=== PATIENT | male | born 1935 | race Caucasian/White ===

== ENCOUNTER 2020-08-20 10:45 | Inpatient (IN) | payer OTHER ==
[2020-08-20] MEDS ORDERED: SODIUM CHLORIDE 0.9% 1000ML 1,000 ML IVS ONE ×3 (10:54→14:22)
--- NOTE | 2020-08-20 11:12 | ED.PDOC ---
History of Present Illness - General Chief Complaint: General Stated Complaint: hypotension Time Seen by Provider: 08/20/20 10:53 Source: patient, RN notes reviewed, Vital Signs reviewed, EMS notes reviewed, [facility] records Exam Limitations: other - dementia - History of Present Illness Initial Comments: Patient is an 85-year-old [facility] resident with history of dementia and multiple chronic medical problems who presents to ED for generalized weakness and low blood pressure. Per EMS, patient had routine labs performed at the [facility] yesterday that showed an elevated potassium. He was given diuretics yesterday and since that time has had 6 or more loose, watery stools. This morning he had generalized weakness and a low blood pressure at the [facility] and EMS was called to transport to ED for evaluation. Upon EMS arrival, his systolic blood pressure was 105 and remained stable in route. Patient denies any pain and he does not remember having diarrhea. He is a poor historian, but denies any concerns at this time. Per [place] sherrie that called ED, pt family in discussions to place him on Hospice. Allergies/Adverse Reactions: Allergies NO KNOWN ALLERGY Allergy (Verified 08/20/20 11:05) Review of Systems - Review of Systems Review of Systems: 08/20/20 11:12 ROS limited due to pt poor hisorian, dementia. He denies any pain and concerns. Family Medical History - Family History Mother Family History: Unknown Physical Exam - Physical Exam General Appearance: Alert, Comfortable, No apparent distress Neck: non-tender, full range of motion, supple Respiratory: chest non-tender, lungs clear, normal breath sounds, no respiratory distress, no accessory muscle use Cardiovascular/Chest: regular rate, rhythm, no edema, no murmur Gastrointestinal/Abdominal: non tender, soft, other - ND, NTTP in all quadrants Back Exam: no CVA tenderness Extremity: normal range of motion, non-tender Neurologic: alert, normal mood/affect Skin Exam: normal color, warm/dry Progress - Progress Progress: 08/20/20 11:14 DDX: hyperkalemia, dehydration, sepsis, coitis, KIYA EKG- rate 70, wide QRS, RBBB, nonspecific T wave abnormality, no peaked T waves. 08/20/20 11:29 Patient presents from [facility] with elevated potassium and diarrhea after getting laxatives yesterday. His potassium today is 6.7 on initial labs. Does not have any cold EKGs or lab results in electronic health record. It is unknown if he has chronic kidney disease. His creatinine is 3.3 today. He appears dehydrated. Will treat with 500 cc of normal saline, insulin and glucose, sodium bicarb, and calcium and monitor in the ED. EKG shows no peaked T waves. He does have wide QRS and right bundle branch block. 08/20/20 14:04 I discussed pt by jabari with his POA, son in law Artemio Bales, . Pt was admitted to [facility] for leg infection 1 month ago and treat with antibiotics for 1 week. Since discharge, he has been at [facility]. Pt is full code. 08/20/20 14:13 Pt also has right great toe that is necrotic appearing with black discoloration. Dry. There is erythema to the midfoot region. Will get xray to al for osteo 08/20/20 15:13 Patient is an 85-year-old male with past medical history of diabetes, peripheral vascular disease and congestive heart failure. He was admitted to [facility] approximately 1 month ago for a foot infection and treated with IV antibiotics and has been at [facility] for the past 3 weeks. He was sent to ED for hypotension and elevated. His white blood cell count was 10,000 and lactic acid was 2.9. Creatinine was 3.3 we have no old records to show his baseline. Initial potassium was 6.7 and he was treated with hyperkalemia cocktail and potassium recheck was 5.5. Chest x-ray shows a left sided pneumonia. He has a necrotic right great toe with surrounding erythema, left foot x-ray shows no sign of osteomyelitis at this time. I have started cefepime and vancomycin and will plan to admit for sepsis due to pneumonia and right foot cellulitis. I have updated patient son in law by phone on results and plan of care. States his physicians have recommended amputation of right great toe due to frequent infections. 08/20/20 16:11 D/W Melony Falcon hospitalist. Will admit - Results/Orders Results/Orders: Acute abominal series EXAM: Abdomen Series INDICATION: 85 years Male, abd pain, diarrhea COMPARISON: None available FINDINGS: Acute abdominal series was performed on 3 images. Mildly prominent heart size. Sternotomy wires and surgical clips are noted. Atherosclerotic calcification at the aortic bulb. Diffuse interstitial infiltrates and patchy and confluent left mid and lower lung zone alveolar infiltrates. No sizable pleural effusion. No pneumothorax. Nonobstructive bowel gas pattern. Air is scattered throughout nondilated loops of small bowel and colon no abnormal air-fluid levels are identified. Surgical clips noted in the left upper quadrant. Diffusely hazy and distended appearance of the abdomen raises the question of possible ascites. No evidence for pneumoperitoneum. Severe degenerative changes in the spine. Degenerative changes in the hips. Vascular calcifications. IMPRESSION: 1. Patchy and confluent infiltrates in the left mid and lower lung zone, compatible with pneumonia. 2. No convincing evidence for mechanical bowel obstruction. 3. Diffusely hazy and distended appearance of the abdomen raises question of possible ascites. Foot xray EXAM DESCRIPTION: Foot,Right 3 Views CLINICAL HISTORY: great toe infection C OMPARISON: None. FINDINGS: 3 views of the right foot show diffuse osteopenia the osseous structures without acute fracture, focal bone destruction, or joint dislocation. Hammertoe deformity of the second through fifth digits is seen. Mild soft tissue irregularity around the distal aspect of the great toe without definite periosteal reaction or bone destructive changes. Severe vascular calcifications are identified. IMPRESSION: Soft tissue abnormality involving the distal aspect of the great toe is seen without radiographic evidence of fracture or bone destructive changes. COVID SWAB POSITIVE Laboratory Results - last 24 hr 08/20/20 08/20/20 08/20/20 10:48 10:48 14:07 WBC 13.1 H RBC 3.52 L Hgb 10.2 L Hct 31.0 L MCV 88.0 MCH 29.0 MCHC 32.9 L RDW 17.0 H Plt Count 568 H MPV 7.4 Absolute Neuts (auto) 11.70 H Absolute Lymphs (auto) 0.70 L Absolute Monos (auto) 0.40 Absolute Eos (auto) 0.10 Absolute Basos (auto) 0.10 Neutrophils % 89.7 H Lymphocytes % 5.6 L Monocytes % 2.8 Eosinophils % 1.1 Basophils % 0.8 Sodium 134 L 135 Potassium 6.7 H* 5.5 H Chloride 101 103 Carbon Dioxide 20 L 20 L Anion Gap 19.7 H 17.5 BUN 83 H 78 H Creatinine 3.30 H 3.22 H BUN/Creatinine Ratio 25.2 H 24.2 H Random Glucose 143 H 106 H Serum Osmolality 295.8 H 293.8 Lactic Acid Calcium 8.7 9.0 Total Bilirubin 0.8 AST 28 ALT 23 Alkaline Phosphatase 72 Serum Total Protein 6.7 Albumin 2.5 L Globulin 4.2 H Albumin/Globulin Ratio 0.6 L Urine Color Urine Appearance Urine pH Ur Specific [place] Urine Protein Urine Glucose (UA) Urine Ketones Urine Blood Urine Nitrite Urine Bilirubin Urine Urobilinogen Ur Leukocyte Esterase Urine RBC Urine WBC Ur Epithelial Cells Amorphous Sediment Urine Bacteria Urine Mucus 08/20/20 08/20/20 14:15 15:36 WBC RBC Hgb Hct MCV MCH MCHC RDW Plt Count MPV Absolute Neuts (auto) Absolute Lymphs (auto) Absolute Monos (auto) Absolute Eos (auto) Absolute Basos (auto) Neutrophils % Lymphocytes % Monocytes % Eosinophils % Basophils % Sodium Potassium Chloride Carbon Dioxide Anion Gap BUN Creatinine BUN/Creatinine Ratio Random Glucose Serum Osmolality Lactic Acid 2.9 H* Calcium Total Bilirubin AST ALT Alkaline Phosphatase Serum Total Protein Albumin Globulin Albumin/Globulin Ratio Urine Color Yellow Urine Appearance Clear Urine pH 5.0 Ur Specific [place] 1.020 Urine Protein Negative Urine Glucose (UA) Negative Urine Ketones Negative Urine Blood Negative Urine Nitrite Negative Urine Bilirubin Negative Urine Urobilinogen 0.2 Ur Leukocyte Esterase Negative Urine RBC 0 Urine WBC 1-3 Ur Epithelial Cells 0 Amorphous Sediment 1+ Urine Bacteria 0 Urine Mucus Trace Departure - Departure Clinical Impression: Hyperkalemia, Cellulitis of right foot Sepsis Qualifiers: Sepsis type: sepsis due to unspecified organism Sepsis acute organ dysfunction status: with acute organ dysfunction Severe sepsis acute organ dysfunction type: unspecified Severe sepsis shock status: without septic shock Qualified Code(s): A41.9 - Sepsis, unspecified organism Pneumonia Qualifiers: Pneumonia type: due to unspecified organism Laterality: left Lung location: lower lobe of lung Qualified Code(s): J18.9 - Pneumonia, unspecified organism Leukocytosis, unspecified Qualifiers: Leukocytosis type: unspecified Qualified Code(s): D72.829 - Elevated white blood cell count, unspecified Time of Disposition: 15:53 Disposition: Admit Patient Condition: Fair Departure Forms: ED Discharge - Pt. Copy, Patient Portal Self Enrollment Referrals: MITCHELL OSMAN [Primary Care Provider] - 1-2 Weeks Decision To Admit - Decistion To Admit Decision to Admit Date: 08/20/20 Decision to Admit Time: 15:52
[2020-08-20] MEDS ORDERED: DEXTROSE 50% 25 GM/50 ML SYG IV ONE (11:24)
[2020-08-20] MEDS ORDERED: CALCIUM CHLORIDE INJ 100 MG/ML SYG IV ONE (11:24)
[2020-08-20] MEDS ORDERED: INSULIN, REG.(HUMAN) 100 U/ML VIAL IV ONE (11:24)
[2020-08-20] MEDS ORDERED: SODIUM BICARBONATE VIAL 50 MEQ/50 ML VIAL IV ONE (11:24)
[2020-08-20] MEDS ORDERED: SODIUM CHLORIDE 0.9% 1000ML 1,000 ML IVS PRN (11:28)
--- NOTE | 2020-08-20 11:35 | RAD ---
EXAM: Abdomen Series INDICATION: 85 years Male, abd pain, diarrhea COMPARISON: None available FINDINGS: Acute abdominal series was performed on 3 images. Mildly prominent heart size. Sternotomy wires and surgical clips are noted. Atherosclerotic calcification at the aortic bulb. Diffuse interstitial infiltrates and patchy and confluent left mid and lower lung zone alveolar infiltrates. No sizable pleural effusion. No pneumothorax. Nonobstructive bowel gas pattern. Air is scattered throughout nondilated loops of small bowel and colon no abnormal air-fluid levels are identified. Surgical clips noted in the left upper quadrant. Diffusely hazy and distended appearance of the abdomen raises the question of possible ascites. No evidence for pneumoperitoneum. Severe degenerative changes in the spine. Degenerative changes in the hips. Vascular calcifications. IMPRESSION: 1. Patchy and confluent infiltrates in the left mid and lower lung zone, compatible with pneumonia. 2. No convincing evidence for mechanical bowel obstruction. 3. Diffusely hazy and distended appearance of the abdomen raises question of possible ascites. Electronically signed by: Rosanna Ontiveros MD 08/20/2020 11:33 AM [facility]
[2020-08-20] MEDS ORDERED: SODIUM CHLORIDE 0.9% 50ML 50 ML ONE (11:55)
[2020-08-20] MEDS ORDERED: cefTRIAXone SODIUM 1 GM in SODIUM CHL 0.9% 100ML MINI-BAG 100 ML IVPB ONE (14:02)
[2020-08-20] MEDS ORDERED: SODIUM CHLORIDE 0.9% (FLUSH) 10 ML SYG IV PRN ×3 (14:02→18:17)
[2020-08-20] MEDS ORDERED: CEFEPIME 2 GM in SODIUM CHL 0.9% 100ML MINI-BAG 100 ML IVPB ONE (14:17)
[2020-08-20] MEDS ORDERED: VANCOMYCIN HCL INJ 1,000 MG in SODIUM CHLORIDE 0.9% 250ML 250 ML IVPB ONE (14:18)
[2020-08-20] MEDS ORDERED: cefTRIAXone SODIUM 2 GM in SODIUM CHL 0.9% 100ML MINI-BAG 100 ML IVPB ONE (14:22)
--- NOTE | 2020-08-20 14:38 | RAD ---
EXAM DESCRIPTION: Foot,Right 3 Views CLINICAL HISTORY: great toe infection COMPARISON: None. FINDINGS: 3 views of the right foot show diffuse osteopenia the osseous structures without acute fracture, focal bone destruction, or joint dislocation. Hammertoe deformity of the second through fifth digits is seen. Mild soft tissue irregularity around the distal aspect of the great toe without definite periosteal reaction or bone destructive changes. Severe vascular calcifications are identified. IMPRESSION: Soft tissue abnormality involving the distal aspect of the great toe is seen without radiographic evidence of fracture or bone destructive changes. Electronically signed by: Bharat Trevino MD 08/20/2020 2:37 PM [facility]
[2020-08-20] MEDS ORDERED: VANCOMYCIN HCL INJ 1,000 MG VIAL IVPB ONE (15:43)
[2020-08-20] MEDS ORDERED: SODIUM CHLORIDE 0.9% 250ML 250 ML ONE ×2 (15:44→19:41)
[2020-08-20] MEDS ORDERED: ACETAMINOPHEN 325 MG TAB PO PRN (18:17)
[2020-08-20] MEDS ORDERED: ALBUTEROL INHALER 64 PUFF/8GM INH PRN (18:22)
[2020-08-20] MEDS ORDERED: REMDESIVIR 200 MG in SODIUM CHLORIDE 0.9% 250ML 250 ML IVPB ONE (18:26)
[2020-08-20] MEDS ORDERED: VANCOMYCIN PER PHARMACY IVPB SCH (18:30)
[2020-08-20] MEDS ORDERED: REMDESIVIR IV 100 MG VIAL ONE (19:41)
[2020-08-20] MEDS: DEXAMETHASONE INJ 4 MG/ML VIAL IV SCH (19:50)
[2020-08-20] MEDS: IV SET AND CAP CHANGE INJ INJ SCH (19:55)
[2020-08-20] MEDS: ALBUTEROL INHALER 64 PUFF/8GM INH SCH (21:00)
[2020-08-20] MEDS ORDERED: ENOXAPARIN SODIUM 40 MG/0.4 ML SYG SUBCU SCH (21:00)
[2020-08-20] MEDS: BIFIDOBACTERIUM INFANTIS 4 MG CAP PO SCH (21:02)
[2020-08-20] MEDS: guaiFENesin ER TAB 600 MG TAB PO SCH (21:02)
[2020-08-20] MEDS: SODIUM CHLORIDE 0.9% (FLUSH) 10 ML SYG IV SCH (21:03)
[2020-08-21] MEDS ORDERED: CEFEPIME 2 GM VIAL ONE ×2 (05:43→15:30)
[2020-08-21] MEDS ORDERED: SODIUM CHL 0.9% 50ML MIN-BAG+ 50 ML IVPB ONE (05:43)
[2020-08-21] MEDS ORDERED: CEFEPIME 2 GM in SODIUM CHL 0.9% 50ML MIN-BAG+ 50 ML IVPB SCH (06:00)
--- NOTE | 2020-08-21 06:24 | RAD ---
EXAM DESCRIPTION: Chest,1 View CLINICAL HISTORY: 85 years Male, covid COMPARISON: None TECHNIQUE: Single AP chest radiograph. FINDINGS: Diffuse bilateral hazy lung opacities, most pronounced at the left lung base. No pneumothorax or pleural effusion. Normal cardiomediastinal contour. Normal osseous structures. IMPRESSION: 1. Bilateral pulmonary opacities consistent with viral pneumonitis and provided history of COVID. Electronically signed by: Jacob Dillon MD 08/21/2020 6:22 AM [employer]
[2020-08-21] MEDS ORDERED: PANTOPRAZOLE SODIUM IV 40 MG VIAL IV SCH (06:30)
[2020-08-21] MEDS ORDERED: REMDESIVIR IV 100 MG VIAL ONE (07:26)
[2020-08-21] MEDS ORDERED: SODIUM CHLORIDE 0.9% 250ML 250 ML ONE (07:26)
[2020-08-21] MEDS ORDERED: INSULIN LISPRO 100 UNITS/ML PEN SUBCU ONE (07:30)
[2020-08-21] MEDS: ALBUTEROL INHALER 64 PUFF/8GM INH SCH ×5 (08:18→20:59)
[2020-08-21] MEDS: BIFIDOBACTERIUM INFANTIS 4 MG CAP PO SCH ×2 (10:31→21:06)
[2020-08-21] MEDS: guaiFENesin ER TAB 600 MG TAB PO SCH ×2 (10:31→21:06)
[2020-08-21] MEDS: DEXAMETHASONE INJ 4 MG/ML VIAL IV SCH (10:31)
[2020-08-21] MEDS: SOD POLYSTYRENE SULFONATE 15 GM/60 ML BTTL PO SCH ×4 (10:31→22:48)
[2020-08-21] MEDS: SODIUM CHLORIDE 0.9% (FLUSH) 10 ML SYG IV SCH ×2 (10:32→21:07)
[2020-08-21] MEDS: REMDESIVIR 100 MG in SODIUM CHLORIDE 0.9% 250ML 250 ML IVPB SCH (10:32)
[2020-08-21] MEDS ORDERED: SOD POLYSTYRENE SULFONATE 15 GM/60 ML BTTL ONE (11:26)
--- NOTE | 2020-08-21 12:50 | HP ---
SUPERVISING PHYSICIAN: Bill Bales MD CHIEF COMPLAINT: Altered mental status and low blood pressure. HISTORY OF PRESENT ILLNESS: This is an 85-year-old male patient who has lived in [place] until recently. He had been treated for a necrotic right great toe and was admitted to [facility] about one month ago for treatment of his foot infection with IV antibiotics. On the date of admission, he was sent to the Emergency Room due to hypotension and elevated potassium as well as an evaluation of that right great toe infection. His initial vital signs in the ER showed temperature 97.9, heart rate 73, blood pressure 98/45, respiratory rate 20, O2 saturation 99% on 2 liters nasal cannula. His potassium had actually been elevated at the skilled nursing and he had been treated with some Kayexalate and had multiple loose stools yesterday. His potassium today was 6.7. He was given some fluids, insulin, glucose, sodium bicarb and calcium and his EKG was monitored. He did not have any EKG changes. His foot x-ray was obtained and showed diffuse osteopenia with the osseous structure without acute fracture, focal bone destruction or joint dislocation. Mild soft tissue irregularity around the distal aspect of the great toe without definite periosteal reaction or bone destructive changes. Severe vascular calcifications are identified. He was also positive for COVID-19 and his abdominal series showed left sided pneumonia. He was given vancomycin and fluids in the ER as well as Remdesivir and cefepime. The patient was admitted to the hospital in stable condition. PAST MEDICAL HISTORY: 1. Diabetes mellitus, type 2. 2. Cellulitis to the right great toe. 3. Congestive heart failure of unknown etiology. 4. Peripheral vascular disease. 5. 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 PAST SURGICAL HISTORY: Unknown. OUTPATIENT MEDICATIONS: 1. Acetaminophen. 2. Vitamin C. 3. Dulcolax suppository. 4. Fluticasone salmeterol. 5. Folic acid. 6. Guaifenesin. 7. Glargine insulin. 8. Nystatin powder. 9. Omeprazole. 10. Zofran. 11. Vitamin D. 12. Zinc. 13. Amiodarone. 14. Eliquis. 15. Cetirizine. 16. Furosemide. 17. Losartan. 18. Metformin. 19. Meclizine. 20. Methotrexate. 21. Prednisone. 22. Simvastatin. 23. Tramadol. ALLERGIES: NO KNOWN DRUG ALLERGIES. SOCIAL HISTORY: He previously lived in [place] and recently was admitted to [facility]. He has unknown status of ETOH, tobacco or illicit drug use. REVIEW OF SYSTEMS: Unable to obtain due to the patient's mental status. PHYSICAL EXAMINATION: VITAL SIGNS: Temperature 97.5, heart rate 76, blood pressure 116/50, respiratory rate 16, O2 saturation 91% on 2 liters nasal cannula. GENERAL: This is an 85-year-old male patient lying in his hospital bed. He is in no acute distress. HEENT: Normocephalic, atraumatic. Pupils are equal and reactive. Oropharynx is clear. NECK: Supple. RESPIRATORY: Essentially clear to auscultation bilaterally. Slightly diminished on the left side. CARDIOVASCULAR: Regular rate and rhythm. GASTROINTESTINAL: Abdomen is soft, nondistended, nontender. Bowel sounds are positive. EXTREMITIES: No cyanosis, clubbing or edema except to the right great toe which is necrotic on the distal 2/3 of the toe with blackened eschar and his bilateral pedal pulses are +1. NEUROLOGIC: He is awake. He does not answer questions appropriately. He will recite his name. SKIN: Warm, pink and dry. LABORATORY: Labs and films are as per history of present illness. IMPRESSION: 1. Sepsis secondary to right great toe cellulitis with a 13,100 WBC, hypotension and dehydration. 2. COVID-19 pneumonitis. 3. Hyperkalemia. 4. Acute kidney failure. It is unknown if he has chronic renal failure. 5. Diabetes mellitus, type 2. 6. Left sided pneumonia, mostly likely healthcare acquired as he been in a skilled nursing for over three weeks. 7. Congestive heart failure of unknown etiology. No current echocardiogram to review. 8. 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 9. Peripheral vascular disease. PLAN: The patient has been admitted to the hospital. He will continue on vancomycin and cefepime. He will also be put on the COVID guidelines including labs and aggressive pulmonary hygiene. We will monitor his kidney function closely as well as his potassium. He may need some Kayexalate at some point to bring it down. I will also put him on the deckhand. He will have Remdesivir, Align, Decadron and Eliquis. His home medications will be restarted as soon as they are available. I have also put him on sliding scale insulin per protocol. We will to monitor the patient closely and follow as needed. #[id number] MTDD
[2020-08-21] MEDS: AMIODARONE HCL 200 MG TAB PO SCH (14:13)
[2020-08-21] MEDS: MECLIZINE HCL 12.5 MG TAB PO SCH ×2 (14:13→21:06)
--- NOTE | 2020-08-21 14:20 | MRI ---
EXAM DESCRIPTION: Lower Extremity,Right: Magnetic Resonance Imaging. CLINICAL HISTORY: Right great toe, possible Osteomyelitis. Patient has COVID 19 COMPARISON: Right foot radiographs August 20. TECHNIQUE: Multiplanar, high-field MRI, multiple sequences, without contrast: right ortho FINDINGS: Small focal area of fluid signal (hyperintense STIR) along the medial aspect and slightly superior, distal phalanx of the right great toe. This is measuring approximately 7.5 x 3.7 mm. Minimal edema soft tissues inferior to the distal phalanx. No effusion in the IP joint; joint margins well defined. Normal marrow signal in the proximal phalanx. No effusion in the metatarsophalangeal joint. Joint margins well defined. Normal marrow signal in the head and mid shaft great toe metatarsal. Minimal soft tissue swelling edema on the plantar aspect of the proximal phalanx and head of the great toe metatarsal, also medial to the sesamoid bones. Normal marrow signal in the sesamoid bones. IMPRESSION: 1. Minimal edema in the medial aspect of the distal phalanx of the right great toe which may represent early osteomyelitis. Proximal phalanx great toe and great toe metatarsal with normal marrow signal. No effusion IP joint or metatarsophalangeal joint. Joint margins are well-defined. 2. Probable cellulitis on the plantar aspect of the distal phalanx, but more on the plantar aspect of the proximal great toe phalanx and distal right metatarsal. No fluid collection. Electronically signed by: Del Norman MD 08/21/2020 2:19 PM [facility]
[2020-08-21] MEDS ORDERED: DEXTROSE 50% 25 GM/50 ML SYG IV PRN (14:58)
[2020-08-21] MEDS ORDERED: GLUCAGON INJ 1 MG VIAL SUBCU PRN (14:58)
[2020-08-21] MEDS ORDERED: traMADol HCL 50 MG TAB ONE (15:30)
[2020-08-21] MEDS ORDERED: metFORMIN HCL 500 MG TAB ONE (15:31)
[2020-08-21] MEDS ORDERED: SODIUM CHLORIDE 0.9% 50ML 50 ML ONE (15:31)
[2020-08-21] MEDS: CEFEPIME 1 GM in SODIUM CHLORIDE 0.9% 50ML 50 ML IVPB SCH (17:04)
[2020-08-21] MEDS: traMADol HCL 50 MG TAB PO SCH ×2 (17:04→21:06)
[2020-08-21] MEDS: metFORMIN HCL 500 MG TAB PO SCH (17:04)
[2020-08-21] MEDS: INSULIN LISPRO 100 UNITS/ML PEN SUBCU SCH ×2 (17:15→21:36)
--- NOTE | 2020-08-21 18:58 | PN ---
SUPERVISING PHYSICIAN: Bill Bales MD DATE: 08/21/20 SUBJECTIVE: The patient is lying in bed. He is in no acute distress. He denies any pain, nausea or vomiting. It is very difficult for him to answer questions. He can answer some simple yes/no questions but has fairly significant dementia. OBJECTIVE: VITAL SIGNS: Temperature 97.6, heart rate 80, blood pressure 198.58, respiratory rate 20, oxygen saturation 94% 3 liters nasal cannula. CHEST: Somewhat diminished at the bases. CARDIAC: Regular rate and rhythm. EXTREMITIES: Right great toe is necrotic with eschar on the distal 2/3 of the entire toe. Bilateral pedal pulses are +1. NEUROLOGICAL: He is alert and oriented to person only. LABORATORY: WBC 10,200 with hemoglobin 9.1, hematocrit 26.8. Fibrinogen 587, D-dimer 340, sodium 138, potassium 5.6, chloride 110, carbon dioxide 19, BUN76, creatinine 2.68. Glucose 136, calcium 8.2, magnesium 2.1, creatinine kinase 24, C-reactive protein 9.1. His followup potassium is 5.3. Preliminary blood cultures show no growth after 24 hours. Urine culture is pending. RADIOLOGY: Chest x-ray shows bilateral pulmonary opacities consistent with bilateral pneumonitis and provided history of Covid. His lower extremity MRI shows: 1. Minimal edema in the medial aspect of the distal phalanx of the right great toe which may represent early osteomyelitis,. Proximal phalanx, great toe and great toe metatarsal with normal marrow signal. No effusion IP joint or metatarsophalangeal joint, margins are well defined. 2. Probable cellulitis on the plantar aspect of the distal phalanx but more on the plantar aspect of the proximal great toe, phalanx and distal right metatarsal. No fluid collection. All other labs and films have been reviewed via the EMR. IMPRESSION: 1. Sepsis secondary to right great toe osteomyelitis 2. COVID-19 pneumonitis. 3. Hyperkalemia that continues in spite of aggressive treatment. 4. Acute kidney failure, slowly improving. . 5. Diabetes mellitus, type 2. 6. Left sided pneumonia, most likely healthcare acquired as he been in a skilled nursing for over three weeks. 7. Congestive heart failure of unknown etiology. No current echocardiogram to review. 8. 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 9. Peripheral vascular disease. PLAN: We will continue present supportive care including his vancomycin and Cafatine, monitor his cultures as they become available. I have also continued to order the labs as per the Covid protocol. I have also consulted for possible amputation of the right great toe. I did give him 2 doses of Kayexalate today and it only brought his potassium down to 5.3. I will give him another 2 doses tonight and we may need to be more aggressive on his potassium if it continues to elevate. We will also order a director of social services and see if we can get a change in hs code status due to patient's poor prognosis. $[id number] MTDD
[2020-08-21] MEDS ORDERED: APIXABAN 5 MG TAB PO ONE (19:56)
[2020-08-21] MEDS ORDERED: SODIUM CHLORIDE 0.9% (FLUSH) 10 ML SYG ONE (19:57)
[2020-08-21] MEDS ORDERED: SIMVASTATIN 10 MG TAB PO ONE (19:57)
[2020-08-21] MEDS ORDERED: ENOXAPARIN SODIUM 30 MG/0.3 ML SYG SUBCU SCH (21:00)
[2020-08-21] MEDS: APIXABAN 5 MG TAB PO SCH (21:06)
[2020-08-21] MEDS: SIMVASTATIN 10 MG TAB PO SCH (21:07)
[2020-08-22] MEDS ORDERED: PANTOPRAZOLE SODIUM TAB 40 MG PO ONE (04:16)
[2020-08-22] MEDS: PANTOPRAZOLE SODIUM TAB 40 MG PO SCH (06:12)
[2020-08-22] MEDS: CEFEPIME 1 GM in SODIUM CHLORIDE 0.9% 50ML 50 ML IVPB SCH ×2 (06:12→17:35)
[2020-08-22] MEDS ORDERED: VANCOMYCIN HCL INJ 1,000 MG in SODIUM CHLORIDE 0.9% 250ML 250 ML IVPB SCH (09:00)
[2020-08-22] MEDS: INSULIN LISPRO 100 UNITS/ML PEN SUBCU SCH ×4 (09:01→20:26)
[2020-08-22] MEDS: metFORMIN HCL 500 MG TAB PO SCH ×2 (09:30→17:35)
[2020-08-22] MEDS: guaiFENesin ER TAB 600 MG TAB PO SCH ×2 (09:30→20:23)
[2020-08-22] MEDS: AMIODARONE HCL 200 MG TAB PO SCH (09:30)
[2020-08-22] MEDS: LOSARTAN POTASSIUM 100 MG TAB PO SCH (09:30)
[2020-08-22] MEDS: ALBUTEROL INHALER 64 PUFF/8GM INH SCH ×4 (09:30→21:10)
[2020-08-22] MEDS: predniSONE 10 MG TAB PO SCH (09:31)
[2020-08-22] MEDS: APIXABAN 5 MG TAB PO SCH ×2 (09:31→20:22)
[2020-08-22] MEDS: CETIRIZINE HCL 10 MG TAB PO SCH (09:31)
[2020-08-22] MEDS: traMADol HCL 50 MG TAB PO SCH ×4 (09:31→20:23)
[2020-08-22] MEDS: DEXAMETHASONE INJ 4 MG/ML VIAL IV SCH (09:31)
[2020-08-22] MEDS: FUROSEMIDE 40 MG TAB PO SCH (09:31)
[2020-08-22] MEDS: MECLIZINE HCL 12.5 MG TAB PO SCH ×3 (09:31→20:23)
[2020-08-22] MEDS: SODIUM CHLORIDE 0.9% (FLUSH) 10 ML SYG IV SCH ×2 (09:32→20:28)
[2020-08-22] MEDS: BIFIDOBACTERIUM INFANTIS 4 MG CAP PO SCH ×2 (09:32→20:22)
[2020-08-22] MEDS: REMDESIVIR 100 MG in SODIUM CHLORIDE 0.9% 250ML 250 ML IVPB SCH (09:32)
[2020-08-22] MEDS: SIMVASTATIN 10 MG TAB PO SCH (20:23)
[2020-08-23] MEDS ORDERED: SODIUM CHLORIDE 0.9% 50ML 50 ML ONE (03:34)
[2020-08-23] MEDS ORDERED: CEFEPIME 2 GM VIAL ONE (03:38)
[2020-08-23] MEDS: CEFEPIME 1 GM in SODIUM CHLORIDE 0.9% 50ML 50 ML IVPB SCH ×2 (05:33→19:06)
[2020-08-23] MEDS: PANTOPRAZOLE SODIUM TAB 40 MG PO SCH (06:02)
--- NOTE | 2020-08-23 09:01 | PN ---
SUPERVISING PHYSICIAN: Bill Bales MD DATE: 08/22/20 SUBJECTIVE: The patient says he is feeling okay. Still has some shortness of breath with minimal efforts on ambulation. He denies any chest pain, nausea or vomiting. OBJECTIVE: VITAL SIGNS: Temperature 97.9, pulse 83, blood pressure 114/64, respirations 20, oxygen saturation 92 to 93% on one liter nasal cannula. GENERAL: Patient looks to be resting comfortably, does not show to be in any distress. CHEST: Lung sounds were diminished toward the bases. No obvious rhonchi, rales, or wheezes note. CARDIAC: Regular rate and rhythm. ABDOMEN: Soft, non-tender, positive bowel sounds. EXTREMITIES: Right great toe with area of necrotic and eschar on the distal 2/3 of the entire toe. Distally pulses were 1+ bilaterally with poor capillary refill. NEUROLOGICAL: He is alert and oriented to self but does not know location or date. LABORATORY: Chemistries showing creatinine 1.50 which is down from 3.3 on admission. Blood sugars ranging between 181 and 288. Serum osmolality elevated at 308, calcium 8.5. MICROBIOLOGY: Final urine culture showed no growth at 24 hours. Blood culture showed no growth at 48 hours. RADIOLOGY: No additional radiographic studies today. IMPRESSION: 1. Covid pneumonitis. 2. Right great toe osteomyelitis with sepsis. 3. Left sided pneumonia, likely healthcare acquired with patient being in a fdc for the last three weeks. 4. Hyperkalemia resolved. . 5. Acute on chronic kidney failure showing return to baseline levels. 6. Diabetes mellitus, type 2. fairly controlled. 7. Congestive heart failure of unknown etiology. No current echocardiogram at time of admission. 8. Immunodeficiency disease, on methotrexate. 9. Peripheral vascular disease. PLAN: At this point, we will continue with Cefepime and vancomycin for both underlying treatment of the healthcare acquired pneumonia and the ongoing sepsis due to osteomyelitis of the right great toe. Await Dr. Herrera's consultation and recommendations of what to do with the patient in regard to the toe. Continue with antibiotics until the patient can be either managed by outpatient and can be taken to surgery, although the patient is a very poor surgical candidate at this point. His potassium has normalized, he has continued to show improvement in his kidney function which we will recheck in the morning. He does remain a full code at this point. We will continue to stay in contact with the family members in regards to patient's condition and hopefully they will transition him to outpatient management in the next one to two days. Until then, we will continue to monitor and treat as needed. #[id number] MTDD
[2020-08-23] MEDS: ALBUTEROL INHALER 64 PUFF/8GM INH SCH ×4 (09:30→21:19)
[2020-08-23] MEDS: CETIRIZINE HCL 10 MG TAB PO SCH (09:31)
[2020-08-23] MEDS: traMADol HCL 50 MG TAB PO SCH ×5 (09:31→21:11)
[2020-08-23] MEDS: MECLIZINE HCL 12.5 MG TAB PO SCH ×3 (09:31→21:11)
[2020-08-23] MEDS: BIFIDOBACTERIUM INFANTIS 4 MG CAP PO SCH ×2 (09:31→21:11)
[2020-08-23] MEDS: FUROSEMIDE 40 MG TAB PO SCH (09:31)
[2020-08-23] MEDS: LOSARTAN POTASSIUM 100 MG TAB PO SCH (09:31)
[2020-08-23] MEDS: guaiFENesin ER TAB 600 MG TAB PO SCH ×2 (09:32→21:11)
[2020-08-23] MEDS: APIXABAN 5 MG TAB PO SCH ×2 (09:32→21:11)
[2020-08-23] MEDS: metFORMIN HCL 500 MG TAB PO SCH ×2 (09:32→16:27)
[2020-08-23] MEDS: AMIODARONE HCL 200 MG TAB PO SCH (09:32)
[2020-08-23] MEDS: REMDESIVIR 100 MG in SODIUM CHLORIDE 0.9% 250ML 250 ML IVPB SCH (09:32)
[2020-08-23] MEDS: predniSONE 10 MG TAB PO SCH (09:32)
[2020-08-23] MEDS: DEXAMETHASONE INJ 4 MG/ML VIAL IV SCH (09:32)
[2020-08-23] MEDS: INSULIN LISPRO 100 UNITS/ML PEN SUBCU SCH ×4 (10:12→21:12)
[2020-08-23] MEDS: SODIUM CHLORIDE 0.9% (FLUSH) 10 ML SYG IV SCH ×2 (10:13→21:13)
--- NOTE | 2020-08-23 18:57 | PN ---
SUPERVISING PHYSICIAN: Bill Bales MD DATE: 08/23/20 SUBJECTIVE: The patient looks like he is doing well. He is eating lunch. He has had no other complaints. OBJECTIVE: VITAL SIGNS: Temperature 98.4, pulse 74, blood pressure 103/57, oxygen saturation 93% on 2 liter nasal cannula. GENERAL: Patient looks to be resting comfortably, does not show to be in any distress. CHEST: Lung sounds were diminished toward the bases. No obvious rhonchi, rales, or wheezes note. CARDIAC: Regular rate and rhythm. ABDOMEN: Soft, non-tender, positive bowel sounds. EXTREMITIES: Right great toe with area of necrotic and eschar on the distal 2/3 of the entire toe. Distally pulses were 1+ bilaterally with poor capillary refill. NEUROLOGICAL: He is alert and oriented to self but does not know location or date. LABORATORY: Chemistries show mildly low potassium at 3.1, otherwise electrolytes within normal limits. Creatinine 1.06, blood sugars range between 119 and 248. Calcium 8.1. MICROBIOLOGY: No growth on urine culture, no growth on blood cultures at 3 days. RADIOLOGY: No additional radiographic studies today. IMPRESSION: 1. Covid pneumonitis. 2. Right great toe osteomyelitis with sepsis. 3. Left sided pneumonia, likely healthcare acquired with patient being in a care home for the last three weeks. 4. Hyperkalemia resolved. . 5. Acute on chronic kidney failure showing return to baseline levels. 6. Diabetes mellitus, type 2. fairly controlled. 7. Congestive heart failure of unknown etiology. No current echocardiogram at time of admission. 8. Immunodeficiency disease, on methotrexate. 9. Peripheral vascular disease. PLAN: We will continue current plan of care with him on Cefepime, Decadron, Remdesivir and vancomycin. Will awai5t 's consultation in regards to treatment of the toe. As far as his toe infection, he seems to be doing well. I anticipate we will be able to discharge him in regards to that back to the care home but will be depending on the antibiotic course we need to do as far as regards to his toe. Until we can transition him back to [facility] we will continue to monitor and treat as needed. [id number] [facility]
[2020-08-23] MEDS: IV SET AND CAP CHANGE INJ INJ SCH (19:07)
[2020-08-23] MEDS: SIMVASTATIN 10 MG TAB PO SCH (21:11)
[2020-08-24] MEDS: CEFEPIME 1 GM in SODIUM CHLORIDE 0.9% 50ML 50 ML IVPB SCH ×2 (05:31→16:59)
[2020-08-24] MEDS: PANTOPRAZOLE SODIUM TAB 40 MG PO SCH (06:02)
[2020-08-24] MEDS: metFORMIN HCL 500 MG TAB PO SCH ×2 (07:36→16:48)
[2020-08-24] MEDS: ALBUTEROL INHALER 64 PUFF/8GM INH SCH ×4 (07:50→20:15)
[2020-08-24] MEDS ORDERED: POTASSIUM CHLORIDE 20 MEQ TAB PO ONE ×2 (07:56→12:00)
[2020-08-24] MEDS: INSULIN LISPRO 100 UNITS/ML PEN SUBCU SCH ×4 (08:00→20:49)
[2020-08-24] MEDS: REMDESIVIR 100 MG in SODIUM CHLORIDE 0.9% 250ML 250 ML IVPB SCH (09:36)
[2020-08-24] MEDS: SODIUM CHLORIDE 0.9% (FLUSH) 10 ML SYG IV SCH ×2 (09:36→20:34)
[2020-08-24] MEDS: ONDANSETRON INJ 4 MG/2 ML VIAL IV PRN (09:36)
[2020-08-24] MEDS: DEXAMETHASONE INJ 4 MG/ML VIAL IV SCH (09:37)
[2020-08-24] MEDS: AMIODARONE HCL 200 MG TAB PO SCH (10:53)
[2020-08-24] MEDS: MECLIZINE HCL 12.5 MG TAB PO SCH ×3 (10:53→20:34)
[2020-08-24] MEDS: BIFIDOBACTERIUM INFANTIS 4 MG CAP PO SCH ×2 (10:53→20:34)
[2020-08-24] MEDS: traMADol HCL 50 MG TAB PO SCH ×4 (10:54→20:35)
[2020-08-24] MEDS: guaiFENesin ER TAB 600 MG TAB PO SCH ×2 (10:54→20:34)
[2020-08-24] MEDS: predniSONE 10 MG TAB PO SCH (10:54)
[2020-08-24] MEDS: FUROSEMIDE 40 MG TAB PO SCH (10:54)
[2020-08-24] MEDS: APIXABAN 5 MG TAB PO SCH ×2 (10:54→20:34)
[2020-08-24] MEDS: LOSARTAN POTASSIUM 100 MG TAB PO SCH (10:54)
[2020-08-24] MEDS: CETIRIZINE HCL 10 MG TAB PO SCH (10:55)
--- NOTE | 2020-08-24 11:14 | RAD ---
EXAM DESCRIPTION: Chest,1 View CLINICAL HISTORY: 85 years Male, pt cannot ambulate or stand COMPARISON: Previous chest x-ray August 21, 2020 TECHNIQUE: AP portable chest. FINDINGS: Heart size is large with increased pulmonary vascularity. Sternotomy wires are present. Extensive bilateral pulmonary infiltrate consistent with pneumonia. The infiltrate in the left lung appears similar to previous study. Infiltrate in the right lung appears increased. No pulmonary mass or worrisome nodule. No pneumothorax or pleural effusion. Bones are unremarkable. IMPRESSION: Large heart with increased vascularity. Bilateral pulmonary infiltrates consistent with pneumonia. Electronically signed by: Korey Bustillo MD 08/24/2020 11:13 AM [facility]
[2020-08-24] MEDS ORDERED: MAGNESIUM SULFATE PREMIX 2GM 2 GM in PREMIX BAG 1 BAG IVPB ONE (11:28)
[2020-08-24] MEDS: VANCOMYCIN HCL INJ 1,000 MG in SODIUM CHLORIDE 0.9% 250ML 250 ML IVPB SCH ×2 (12:04→12:10)
[2020-08-24] MEDS ORDERED: KCL 20MEQ/WATER FOR INJ 100ML 20 MEQ in PREMIX BAG 1 BAG IVPB ONE ×2 (12:13→18:00)
[2020-08-24] MEDS ORDERED: METHOTREXATE SODIUM PO SCH (13:13)
--- NOTE | 2020-08-24 17:29 | PN ---
SUPERVISING PHYSICIAN: Bob Garcia MD DATE: 08/24/20 SUBJECTIVE: The patient is lying in bed. He does occasionally answer some simple questioning, but he is mostly confused. Nursing reports he has had no issues overnight. I spoke with Dr. Herrera and he will be seeing the patient later today. OBJECTIVE: VITAL SIGNS: Temperature 98.6, heart rate 99, blood pressure 127/66, respiratory rate 20, O2 saturation 91% on high flow nasal cannula. RESPIRATORY: Scattered rhonchi throughout with diminished at the bases. CARDIAC: Regular rate and rhythm. NEUROLOGIC: He is awake, somewhat lethargic. LABORATORY: Electrolytes are within normal limits with the exception of potassium 3.1. Magnesium 1.3, BUN 34, creatinine 0.98. MICROBIOLOGY: Preliminary blood cultures show no growth after 4 days. RADIOLOGY: Chest x-ray shows large heart with increased vascularity. Bilateral pulmonary infiltrates consistent with pneumonia. All other labs and films have been reviewed via the EMR. ASSESSMENT: 1. COVID pneumonitis. 2. Right great toe osteomyelitis with sepsis. 3. Left sided pneumonia, likely healthcare acquired with patient being in a [facility] for the last three weeks. 4. Hyperkalemia resolved. 5. Acute on chronic kidney failure showing return to baseline levels. 6. Diabetes mellitus, type 2, fairly controlled. 7. Congestive heart failure of unknown etiology. No current echocardiogram at time of admission. 8. Immunodeficiency disease, on methotrexate. 9. Peripheral vascular disease. PLAN: We will continue present supportive care. He will continue with the COVID guidelines including lab and medications. I have ordered a dietary consult in regard to his wound care. Dr. Herrera will see the patient later. I will need to speak with the family to clarify code status and let them know Dr. Herrera's recommendation. He has some magnesium and potassium supplementation. I will recheck his potassium and magnesium tonight as well as in the morning. A PICC line has been ordered as he will require long-term antibiotic therapy due to his osteomyelitis. [id number] [facility]
[2020-08-24] MEDS: SIMVASTATIN 10 MG TAB PO SCH (20:35)
[2020-08-25] MEDS: CEFEPIME 1 GM in SODIUM CHLORIDE 0.9% 50ML 50 ML IVPB SCH ×2 (05:43→18:29)
[2020-08-25] MEDS: PANTOPRAZOLE SODIUM TAB 40 MG PO SCH (05:44)
[2020-08-25] MEDS: INSULIN LISPRO 100 UNITS/ML PEN SUBCU SCH ×4 (07:35→21:26)
--- NOTE | 2020-08-25 07:42 | RAD ---
Exam(s): XR CHEST 1 VIEW: 08/25/2020 7:00 AM [employer]CR[employer]E [employer] Indication: covid Comparison Study Date: 08/24/2020 Technique: AP chest radiograph. Findings: There are moderate multifocal pulmonary opacities which are unchanged compared with yesterday's exam. No pleural effusion or pneumothorax. Heart size is normal. Unchanged mediastinal contours. Patient is status post CABG. No bone abnormality is identified. IMPRESSION: Unchanged pulmonary infiltrates compared with yesterday's exam. Electronically signed by: Del Trinidad MD 08/25/2020 7:41 AM [employer]CR[employer] DR[employer]
[2020-08-25] MEDS: ALBUTEROL INHALER 64 PUFF/8GM INH SCH ×4 (09:00→22:10)
--- NOTE | 2020-08-25 12:41 | RAD ---
Portable chest INDICATION: PICC line placement COMPARISON: August 25 7:03 AM IMPRESSION: Right arm PICC line tip to the lower SVC atrial caval junction region. Similar appearing extensive infiltrate/edema in the chest post median sternotomy for CABG. Heart remains enlarged. No large pneumothorax. Otherwise stable chest Electronically signed by: Asael Lopez MD 08/25/2020 12:39 PM EDUCATIONAL AUDIOLOGIST
[2020-08-25] MEDS: DEXAMETHASONE INJ 4 MG/ML VIAL IV SCH (13:36)
[2020-08-25] MEDS: SODIUM CHLORIDE 0.9% (FLUSH) 10 ML SYG IV SCH ×2 (13:36→20:48)
[2020-08-25] MEDS: ENOXAPARIN SODIUM 40 MG/0.4 ML SYG SUBCU SCH (13:37)
[2020-08-25] MEDS: metFORMIN HCL 500 MG TAB PO SCH (13:39)
[2020-08-25] MEDS: FUROSEMIDE 40 MG TAB PO SCH (13:40)
[2020-08-25] MEDS: BIFIDOBACTERIUM INFANTIS 4 MG CAP PO SCH (13:40)
[2020-08-25] MEDS: predniSONE 10 MG TAB PO SCH (13:40)
[2020-08-25] MEDS: APIXABAN 5 MG TAB PO SCH (13:40)
[2020-08-25] MEDS: LOSARTAN POTASSIUM 100 MG TAB PO SCH (13:40)
[2020-08-25] MEDS: guaiFENesin ER TAB 600 MG TAB PO SCH (13:40)
[2020-08-25] MEDS: MECLIZINE HCL 12.5 MG TAB PO SCH (13:40)
[2020-08-25] MEDS: traMADol HCL 50 MG TAB PO SCH (13:40)
[2020-08-25] MEDS: AMIODARONE HCL 200 MG TAB PO SCH (13:40)
[2020-08-25] MEDS: CETIRIZINE HCL 10 MG TAB PO SCH (16:16)
[2020-08-25] MEDS: VANCOMYCIN HCL INJ 1,000 MG in SODIUM CHLORIDE 0.9% 250ML 250 ML IVPB SCH (22:30)
[2020-08-26] MEDS: CEFEPIME 1 GM in SODIUM CHLORIDE 0.9% 50ML 50 ML IVPB SCH ×2 (05:53→19:07)
[2020-08-26] MEDS: PANTOPRAZOLE SODIUM TAB 40 MG PO SCH (05:54)
--- NOTE | 2020-08-26 07:35 | RAD ---
EXAM DESCRIPTION: Chest,1 View CLINICAL HISTORY: 85 years Male, covid COMPARISON: August 25, 2020 TECHNIQUE: AP portable chest. FINDINGS: Small lung volumes with diffuse heterogeneous alveolar changes throughout both lungs with minimal sparing in the apical region on the left noted consistent with coalescent multifocal pneumonia and consolidation. Little change from previous day's study noted. Normal-sized heart with previous sternotomy and bypass surgery with no significant pleural fluid noted. IMPRESSION: Diffuse alveolar changes throughout both lungs most consistent with coalescent bilateral extensive pneumonia. No significant change. Electronically signed by: Bob Diaz MD 08/26/2020 7:33 AM [facility]
[2020-08-26] MEDS: INSULIN LISPRO 100 UNITS/ML PEN SUBCU SCH ×4 (08:28→21:11)
--- NOTE | 2020-08-26 08:34 | PN ---
SUPERVISING PHYSICIAN: Bob Garcia MD DATE: 08/25/20 SUBJECTIVE: The patient is lethargic and he mumbles answers. He is refusing to eat at this time or take his oral medications. I did call his stepson and spoke to both his stepson and his daughter. They are going to discuss his code status, but at this time they want everything done. OBJECTIVE: VITAL SIGNS: Temperature 98.2, heart rate 90, blood pressure 116/61, respiratory rate 24, O2 saturation 91% on 12 liters high flow nasal cannula. RESPIRATORY: Diminished breath sounds throughout with mild expiratory wheezing. CARDIAC: Regular rate and rhythm. EXTREMITIES: He has some generalized edema of all four extremities. NEUROLOGIC: He is awake, but disoriented. He mumbles words, does not answer questions appropriately. LABORATORY: WBCs up to 19,200 with hemoglobin 9.6, hematocrit 28.4. He has a left shift on differential. D-dimer 311, fibrinogen 525. Electrolytes are basically within normal limits with the exception of calcium slightly low at 8. BUN 27, creatinine 0.86. LD 197, creatinine kinase 20, C-reactive protein 12.4. RADIOLOGY: Chest x-ray shows unchanged pulmonary infiltrates compared to yesterday's exam. ASSESSMENT: 1. Hypoxic respiratory failure requiring high flow oxygen. 2. COVID pneumonitis. 3. Right great toe osteomyelitis with sepsis. 4. Left sided pneumonia, likely healthcare acquired with patient being in a custodial for the last three weeks. 5. Hyperkalemia resolved. 6. Acute on chronic kidney failure showing return to baseline levels. 7. Diabetes mellitus, type 2, fairly controlled. 8. Congestive heart failure of unknown etiology. No current echocardiogram at time of admission. 9. Immunodeficiency disease, on methotrexate. 10. Peripheral vascular disease. PLAN: We will continue present supportive care including COVID guidelines. I have discontinued his oral medications at this point until the patient's clinical picture improves and he is able to take p.o. medications. I will change his Eliquis to Lovenox. We will continue the Walton catheter as the patient is too weak to urinate in a urinal or to get up to bedside commode. I will repeat his lab and chest x-ray tomorrow. He is somewhat puffy and edematous, so I gave him some IV Lasix today. I will continue to discuss his code status with his family as the patient's prognosis is very poor. #[id number] [facility]
[2020-08-26] MEDS: ALBUTEROL INHALER 64 PUFF/8GM INH SCH ×4 (09:43→21:30)
[2020-08-26] MEDS ORDERED: MORPHINE SULFATE INJ 10 MG/ML VIAL IV PRN (09:45)
[2020-08-26] MEDS ORDERED: MORPHINE SULFATE INJ 10 MG/ML VIAL ONE (09:45)
[2020-08-26] MEDS: DEXAMETHASONE INJ 4 MG/ML VIAL IV SCH (10:26)
[2020-08-26] MEDS: ENOXAPARIN SODIUM 40 MG/0.4 ML SYG SUBCU SCH (10:26)
[2020-08-26] MEDS: SODIUM CHLORIDE 0.9% (FLUSH) 10 ML SYG IV SCH ×2 (10:33→21:13)
[2020-08-26] MEDS: IV SET AND CAP CHANGE INJ INJ SCH (19:08)
[2020-08-27] MEDS: CEFEPIME 1 GM in SODIUM CHLORIDE 0.9% 50ML 50 ML IVPB SCH ×2 (05:41→17:46)
[2020-08-27] MEDS: PANTOPRAZOLE SODIUM TAB 40 MG PO SCH (06:02)
--- NOTE | 2020-08-27 07:52 | PN ---
SUPERVISING PHYSICIAN: Bob Garcia MD DATE: 08/26/20 SUBJECTIVE: Patient lying in bed with no complaints. Poor communication, especilly with family members. OBJECTIVE: VITAL SIGNS: Temperature 98.5, heart rate 99, blood pressure 125/69, respiratory rate 16, O2 saturation 94% on BIPAP AT 70%. RESPIRATORY: Diminished breath sounds throughout. CARDIAC: Regular rate and rhythm. NEUROLOGIC: He is awake at times but somewhat lethargic. He mumbles incoherently and other times he will answer some simple yes/no questions. LABORATORY: WBCs are now 20,400 with hemoglobin 9.2, hematocrit 27.3, neutrophils are are 91.4%. D-dimer 585, fibrinogen 518, Electrolytes are basically within normal limits with the exception of calcium is 8.2. C- reactive protein is 9.3. RADIOLOGY: Chest x-ray shows diffuse alveolar changes throughout both lungs most consistent with coalescent bilateral extensive pneumonia, no significant change. All other labs and films have been reviewed via the EMR. ASSESSMENT: 1. Hypoxic respiratory failure requiring high flow oxygen. 2. COVID pneumonitis. 3. Right great toe osteomyelitis with sepsis. 4. Left sided pneumonia, likely healthcare acquired with patient being in a half-way for the last three weeks. 5. Hyperkalemia resolved. 6. Acute on chronic kidney failure showing return to baseline levels. 7. Diabetes mellitus, type 2, fairly controlled. 8. Congestive heart failure of unknown etiology. No current echocardiogram at time of admission. 9. Immunodeficiency disease, on methotrexate. 10. Peripheral vascular disease. PLAN: We will continue present supportive care. Will talk to his family today in regard to his poor prognosis, especially considering his increased oxygen and his WBCs are continued to increase. I will order some basic lab tomorrow and will continue aggressive treatment for now. [id number] [facility]
[2020-08-27] MEDS: INSULIN LISPRO 100 UNITS/ML PEN SUBCU SCH ×4 (07:57→20:25)
[2020-08-27] MEDS: ALBUTEROL INHALER 64 PUFF/8GM INH SCH ×4 (08:30→21:02)
[2020-08-27] MEDS: ENOXAPARIN SODIUM 40 MG/0.4 ML SYG SUBCU SCH (09:00)
[2020-08-27] MEDS: SODIUM CHLORIDE 0.9% (FLUSH) 10 ML SYG IV SCH ×2 (09:01→20:26)
[2020-08-27] MEDS: DEXAMETHASONE INJ 4 MG/ML VIAL IV SCH (09:01)
[2020-08-27] MEDS: VANCOMYCIN HCL INJ 1,000 MG in SODIUM CHLORIDE 0.9% 250ML 250 ML IVPB SCH (11:44)
[2020-08-27] MEDS ORDERED: VANCOMYCIN HCL INJ 1,000 MG in SODIUM CHLORIDE 0.9% 250ML 250 ML IVPB SCH (12:00)
[2020-08-28] MEDS: CEFEPIME 1 GM in SODIUM CHLORIDE 0.9% 50ML 50 ML IVPB SCH ×2 (05:35→18:17)
[2020-08-28] MEDS: PANTOPRAZOLE SODIUM IV 40 MG VIAL IV SCH (06:18)
[2020-08-28] MEDS: INSULIN LISPRO 100 UNITS/ML PEN SUBCU SCH ×4 (07:30→20:22)
--- NOTE | 2020-08-28 08:08 | PN ---
SUPERVISING PHYSICIAN: Bob Garcia MD DATE: 08/27/20 SUBJECTIVE: The patient is lying in bed. There has been no change per nursing. The patient continues to be on noninvasive ventilation. His children were supposed to come to the hospital today to visit him, but I have not seen any family members. The patient's prognosis is poor. OBJECTIVE: VITAL SIGNS: Temperature 97.7, heart rate 64, blood pressure 115/59, respiratory rate 32, O2 saturation 96% on 50% BiPAP. RESPIRATORY: Diminished breath sounds throughout. CARDIAC: Regular rate and rhythm. GASTROINTESTINAL: Abdomen soft, nondistended, nontender. Bowel sounds are positive. NEUROLOGIC: He is awake. He follows commands. LABORATORY: WBCs 18,700 with hemoglobin 9, hematocrit 27.2. He has a left shift on differential. Electrolytes are basically within normal limits. BUN 32, creatinine 1.08. MICROBIOLOGY: Preliminary blood cultures show no growth after 5 days. All other labs and films have been reviewed via the EMR. ASSESSMENT: 1. Hypoxic respiratory failure requiring high flow oxygen. 2. COVID pneumonitis. 3. Right great toe osteomyelitis with sepsis. 4. Left sided pneumonia, likely healthcare acquired with patient being in a longterm for the last three weeks. 5. Hyperkalemia resolved. 6. Acute on chronic kidney failure showing return to baseline levels. 7. Diabetes mellitus, type 2, fairly controlled. 8. Congestive heart failure of unknown etiology. No current echocardiogram at time of admission. 9. Immunodeficiency disease, on methotrexate. 10. Peripheral vascular disease. PLAN: We will continue present supportive care. The patient continues to have a poor prognosis. His stepchildren as well as daughter were supposed to come to the hospital today. I have not seen them, nor have I spoken to them. The patient has a poor proximally based and we need to address his code status. I have ordered labs for in the morning. We will continue to try to wean off of his oxygen. [facility][id number] [facility]
[2020-08-28] MEDS: ALBUTEROL INHALER 64 PUFF/8GM INH SCH ×4 (08:25→19:50)
[2020-08-28] MEDS: SODIUM CHLORIDE 0.9% (FLUSH) 10 ML SYG IV SCH ×2 (09:01→20:23)
[2020-08-28] MEDS: ENOXAPARIN SODIUM 40 MG/0.4 ML SYG SUBCU SCH (09:01)
[2020-08-28] MEDS ORDERED: GLUCAGON INJ 1 MG VIAL SUBCU PRN (09:55)
[2020-08-28] MEDS: DEXAMETHASONE INJ 10 MG/ML VIAL IV SCH (10:51)
[2020-08-28] MEDS: VANCOMYCIN HCL INJ 1,000 MG in SODIUM CHLORIDE 0.9% 250ML 250 ML IVPB SCH ×2 (12:15→23:47)
--- NOTE | 2020-08-28 14:01 | RAD ---
EXAM DESCRIPTION: Chest,1 View CLINICAL HISTORY: covid pna COMPARISON: Chest x-ray August 26, 2020 at 0652 hours. FINDINGS: Portable semiupright view of the thorax. Stable decreased inspiration with multifocal bilateral patchy airspace disease. No pneumothorax. Remote surgical changes of the mediastinum. Heart completely obscured by airspace disease. Right upper extremity PICC line catheter tip projects in satisfactory position of the mid distal superior vena cava. IMPRESSION: Stable severe bilateral airspace disease. Electronically signed by: David Sherman MD 08/28/2020 1:[address] [facility]
--- NOTE | 2020-08-28 19:09 | PN ---
SUPERVISING PHYSICIAN: Bob Garcia MD DATE: 08/28/20 SUBJECTIVE: The patient has been actually able to maintain his O2 saturations fairly decently on high-flow nasal cannula today. He is still needing BiPAP intermittently with some desaturations. OBJECTIVE: VITAL SIGNS: Temperature 97.8, pulse 94, blood pressure 115/65, respirations 16 to 20, saturation anywhere from 87 to 92% on high flow nasal cannula at 2 to 3 liters. RESPIRATORY: Diminished breath sounds throughout. CARDIAC: Regular rate and rhythm. GASTROINTESTINAL: Abdomen soft, nondistended, nontender. Bowel sounds are positive. NEUROLOGIC: He is awake. He follows commands. LABORATORY: No additional labs today other than his blood sugars which are ranging between 176 and 294. RADIOLOGY: Chest x-ray today per radiologic interpretation shows stable severe bilateral airspace disease. ASSESSMENT: 1. Hypoxic respiratory failure requiring high flow oxygen. 2. COVID pneumonitis. 3. Right great toe osteomyelitis with sepsis. 4. Left sided pneumonia, likely healthcare acquired with patient being in a correction for the last three weeks. 5. Hyperkalemia resolved. 6. Acute on chronic kidney failure showing return to baseline levels. 7. Diabetes mellitus, type 2, fairly controlled. 8. Congestive heart failure of unknown etiology. No current echocardiogram at time of admission. 9. Immunodeficiency disease, on methotrexate. 10. Peripheral vascular disease. PLAN: We will continue current plan of care at this point. We are still working to get him off BiPAP if possible. He prognosis is still poor, but he is making a little bit of progress today. We still need to work with his family and clarify his DNR status. We will continue antibiotics in regards to his toe. Other than that, we will continue with current plan of care and work to wean him off oxygen. Until the patient can transition to outpatient management, we will continue to monitor and treat as needed. [facility][id number] [facility]
[2020-08-29] MEDS: PANTOPRAZOLE SODIUM IV 40 MG VIAL IV SCH (06:09)
[2020-08-29] MEDS: CEFEPIME 1 GM in SODIUM CHLORIDE 0.9% 50ML 50 ML IVPB SCH ×2 (06:09→17:13)
[2020-08-29] MEDS: INSULIN LISPRO 100 UNITS/ML PEN SUBCU SCH ×4 (07:29→21:10)
[2020-08-29] MEDS: ALBUTEROL INHALER 64 PUFF/8GM INH SCH ×4 (08:20→20:30)
[2020-08-29] MEDS: DEXAMETHASONE INJ 10 MG/ML VIAL IV SCH (08:42)
[2020-08-29] MEDS: SODIUM CHLORIDE 0.9% (FLUSH) 10 ML SYG IV SCH ×2 (08:43→21:14)
[2020-08-29] MEDS: ENOXAPARIN SODIUM 40 MG/0.4 ML SYG SUBCU SCH (08:43)
[2020-08-29] MEDS: VANCOMYCIN HCL INJ 1,000 MG in SODIUM CHLORIDE 0.9% 250ML 250 ML IVPB SCH ×2 (12:29→23:47)
[2020-08-29] MEDS: IV SET AND CAP CHANGE INJ INJ SCH (18:30)
--- NOTE | 2020-08-29 18:40 | PN ---
SUPERVISING PHYSICIAN: Bob Garcia MD DATE: 08/29/20 SUBJECTIVE: The patient is still trying to get on BiPAP. He is able to actually intermittently get on some high flow nasal cannula and be okay. He is still requiring a Walton catheter due to the fact that he is using BiPAP. He is not any distress he is certainly not maintaining 02 saturations without high flow or higher demand on his FI02. OBJECTIVE: VITAL SIGNS: Temperature 97.8, pulse 77, blood pressure 114/64, respirations 22, saturation anywhere from 96% on high flow nasal cannula and BiPAP FI02 at 50%. RESPIRATORY: Diminished breath sounds throughout. CARDIAC: Regular rate and rhythm. GASTROINTESTINAL: Abdomen soft, nondistended, nontender. Bowel sounds are positive. NEUROLOGIC: He is awake. He follows commands. LABORATORY: White count down to 8,500, hemoglobin down a little to 8.5, hematocrit 25.6, platelet count 292,000. Differential does show a left shift. D-dimer went up today to 1030 from 585 yesterday. Chemistries are showing stable creatinine at 1.16 as well as electrolytes. Blood sugars ranging between 208 and 357. Calcium 8.2, liver functions all within normal limits. C- reactive protein 8.9. MICROBIOLOGY: Urine culture showed no growth after 48 hours. Blood cultures were final at 5 days with no growth. RADIOLOGY: No repeat chest x-ray today. ASSESSMENT: 1. Hypoxic respiratory failure requiring high flow oxygen. 2. COVID pneumonitis. 3. Right great toe osteomyelitis with sepsis. 4. Left sided pneumonia, likely healthcare acquired with patient being in a [facility] for the last three weeks. 5. Hyperkalemia resolved. 6. Acute on chronic kidney failure showing return to baseline levels. 7. Diabetes mellitus, type 2, fairly controlled. 8. Congestive heart failure of unknown etiology. No current echocardiogram at time of admission. 9. Immunodeficiency disease, on methotrexate. 10. Peripheral vascular disease. PLAN: We will continue current plan of care with him trying to titrate down onto high flow nasal cannula for longer periods of time instead of requiring FI02 at 50% while on BiPAP. He remains on Cefepime, vancomycin for antibiotic coverage. We have him on Lovenox right now at 40 mg daily. He is still on Decadron but he has finished his Remdesivir. We will continue to provide aggressive pulmonary hygiene and I have encouraged as much proning as possible and hopefully attempt to improve airspace and some lung tissue. We had his family come up today, they have sill not decided on his resuscitative status. At this point, he remains a full code. Hopefully, we will be able to titrate him down as allows and improves. Until we can transition him to outpatient management, we will continue to monitor and treat as needed. [facility][id number] [facility]
[2020-08-30] MEDS: CEFEPIME 1 GM in SODIUM CHLORIDE 0.9% 50ML 50 ML IVPB SCH ×2 (05:58→17:00)
[2020-08-30] MEDS: PANTOPRAZOLE SODIUM IV 40 MG VIAL IV SCH (05:58)
[2020-08-30] MEDS: INSULIN LISPRO 100 UNITS/ML PEN SUBCU SCH ×4 (07:35→21:27)
[2020-08-30] MEDS: ALBUTEROL INHALER 64 PUFF/8GM INH SCH ×4 (08:15→22:30)
[2020-08-30] MEDS: DEXAMETHASONE INJ 10 MG/ML VIAL IV SCH (08:53)
[2020-08-30] MEDS: ENOXAPARIN SODIUM 40 MG/0.4 ML SYG SUBCU SCH (08:53)
[2020-08-30] MEDS: SODIUM CHLORIDE 0.9% (FLUSH) 10 ML SYG IV SCH ×2 (08:53→20:34)
[2020-08-30] MEDS: ONDANSETRON INJ 4 MG/2 ML VIAL IV PRN (09:50)
[2020-08-30] MEDS: VANCOMYCIN HCL INJ 1,000 MG in SODIUM CHLORIDE 0.9% 250ML 250 ML IVPB SCH (12:41)
--- NOTE | 2020-08-30 19:12 | RAD ---
EXAM DESCRIPTION: Chest,1 View 08/30/2020 7:09 PM FISHING ROD MECHANIC CLINICAL HISTORY: 85 years, Male, COVID PNA COMPARISON: 08/28/2020-08/26/2020. FINDINGS: Single view of the chest was obtained portable. Prior films were compared. The lung volume is decreased. External EKG leads within the [id number] limits diagnosis. There is a right upper extremity PICC line tip of the catheter within the cavoatrial junction area sternotomy wires and saphenous graft markers correspond to previous CABG. Increased interstitial pulmonary markings throughout lung torres could suggest the possibility of interstitial pulmonary edema, early changes ARDS and/or viral pneumonia The thoracic aorta demonstrate to be within normal limits. The heart is prominent. There are no significant pleural effusions. The rest of the soft tissue and bony structures demonstrate to be unremarkable. IMPRESSION: DECREASED LUNG VOLUME. STATUS POST CABG. RIGHT UPPER EXTREMITY PICC LINE IN PLACE. BILATERAL AIRSPACE DENSITIES SIMILAR TO PRIOR STUDY Electronically signed by: Emil Caldwell MD 08/30/2020 7:10 PM FISHING ROD MECHANIC
[2020-08-31] MEDS: CEFEPIME 1 GM in SODIUM CHLORIDE 0.9% 50ML 50 ML IVPB SCH (05:34)
[2020-08-31] MEDS: PANTOPRAZOLE SODIUM IV 40 MG VIAL IV SCH (06:02)
--- NOTE | 2020-08-31 06:12 | RAD ---
EXAM DESCRIPTION: Chest,1 View CLINICAL HISTORY: COVID PNA COMPARISON: 08/30/2020 FINDINGS: Single frontal view of the chest. Tubes and lines: Leads overlie the chest. Right arm PICC with tip in the SVC Cardiomediastinal silhouette: Stable Lungs: Diffuse bilateral interstitial and airspace opacities are stable. No pneumothorax. Bones: Stable. Upper abdomen: Stable. IMPRESSION: 1. Stable appearance of the chest. Electronically signed by: Abdulaziz Walden 08/31/2020 6:10 AM BELT LOOP CUTTER
[2020-08-31] MEDS: INSULIN LISPRO 100 UNITS/ML PEN SUBCU SCH ×4 (08:00→20:56)
[2020-08-31] MEDS: ALBUTEROL INHALER 64 PUFF/8GM INH SCH ×4 (08:20→21:00)
--- NOTE | 2020-08-31 08:36 | PN ---
SUPERVISING PHYSICIAN: Bob Garcia MD DATE: 08/30/20 SUBJECTIVE: The patient has had a significant decline this afternoon. He has actually become fairly unresponsive and had to increase his FI02 and his BiPAP settings. It got quite significant. We did call and discuss the patient's condition with the family. They have decided to make him a limited code which includes no intubation and no chest compression. OBJECTIVE: VITAL SIGNS: Temperature 97.2, pulse 60, blood pressure 109/67, respirations 32 t0 36 showing 96% on BiPAP with FI02 at 50%. GENERAL: The patient looks to be resting comfortably and in no acute distress other than the face he is tachypneic. He is very difficult to arouse, only arouse to deep pain stimulus at this point but he has gotten some Ativan. CHEST: Sounds diminished throughout, no significant dramatic changes. CARDIAC: Regular rate and rhythm. GASTROINTESTINAL: Abdomen soft, nondistended, nontender. Bowel sounds are positive. EXTREMITIES: Without edema. NEUROLOGIC: He is obtunded but will arouse to deep stimulus. Again, he has had some Ativan. LABORATORY: Acute white count this morning was 8,500 but a repeat of his CBC this afternoon shows his white count at 13,500. Hemoglobin 9.3, hematocrit 28.8, platelet count 294,000. Differential shows to be with a left shift. Blood gas analysis shows a peak of 7.35 with a P02 of 57, PC02 of 45, oxygen saturation 89% on initially 50% FI02 and BiPAP. Chemistries show normal electrolytes, creatinine 0.9, lactic acid is slightly elevated at 2.5, troponin 1.0. Liver functions all within normal limits. EKG shows a right bundle branch block with no significant change from admission. RADIOLOGY: Chest x-ray shows decreased lung volume with a right upper extremity PICC line in place and bilateral airspace densities similar to previous study. ASSESSMENT: 1. Hypoxic respiratory failure with increasing demand for high flow oxygen and noninvasive ventilation. 2. COVID pneumonitis with developing pneumonia. 3. Right great toe osteomyelitis with sepsis with elevated lactic acid on parenteral antibiotics. 4. Worsening left-sided pneumonia, healthcare acquired having been in a custodial for previous three weeks prior to admission. 5. Acute on chronic kidney failure showing to be at baseline levels now. 6. Elevated troponin, likely with a non-STEMI due to #1. 7. Congestive heart failure, etiology uncertain. No current echocardiogram for review. 8. Immunodeficiency disease, on methotrexate. 9. Peripheral vascular disease. PLAN: We will continue with BiPAP. I have talked to the family at length, his brother who did sign a DNR, he has the Power of Furnace Mechanic and patient has been changed to a limited code which includes no CPR or intubation. I did reinforce to them that the patient's prognosis is pretty grim and I am not sure if this is an indication that he is significantly deteriorating and ultimately will continue to do so over the next 12 to 24 hours, but they are aware of the situation. We will with current plan at this point. There is just really not anything significant to change other than to continue to support his respiration and his respiratory efforts with BiPAP as much as possible. I have ordered the nurses to get him out of bed as needed, to keep him comfortable so he is not fighting his BiPAP mask. We will continue to monitor the patient as needed. Hopefully, we will be able to titrate his 02 levels down some. Again, I think at this point his resuscitative status is adequate given his poor prognosis and his acute deterioration. We will keep the patient's family updated on the patient's condition. Critical time spent for evaluation and treatment on patient as well as coordination of care with nursing and respiratory staff and chart review, border measurer and cutter, as well as documentation included was 45 minutes. #[id number] MTDD
[2020-08-31] MEDS: ENOXAPARIN SODIUM 40 MG/0.4 ML SYG SUBCU SCH (09:40)
[2020-08-31] MEDS: SODIUM CHLORIDE 0.9% (FLUSH) 10 ML SYG IV SCH ×2 (09:40→20:57)
[2020-08-31] MEDS: DEXAMETHASONE INJ 10 MG/ML VIAL IV SCH (09:40)
--- NOTE | 2020-08-31 14:56 | PN ---
SUPERVISING PHYSICIAN: Darío Rivera MD DATE: 08/31/20 SUBJECTIVE: The patient remains unresponsive on BiPAP. I discussed the patient's poor prognosis with his family members. They are aware of the situation and I have encouraged him to consider possible hospice as I do not see that the patient is going to clinically turn around and improve. OBJECTIVE: VITAL SIGNS: Temperature 98.8, pulse 101, blood pressure 111/63, respirations 28 saturation 92% on 65% FIO2 on BiPAP. I&Os show negative balance of 1100. GENERAL: The patient is obtunded and unresponsive, only to deep stimulus to pain. CHEST: Sounds diminished throughout. CARDIAC: Regular rate and rhythm, tachycardic on the monitor. GASTROINTESTINAL: Abdomen soft. Bowel sounds are positive. EXTREMITIES: Without edema. NEUROLOGIC: He is unresponsive. SKIN: Warm, pink and dry. LABORATORY: White count 13,300, hemoglobin 9.3, hematocrit 28.6, platelet count 239,000. Differential does show a left shift, but no bands. Coagulation studies show D-dimer up to 3710. Chemistry shows sodium 149, carbon dioxide 26, chloride 114, BUN 38, creatinine 1.11. Blood sugars range between 175 and 187. Liver functions all within normal limits. Troponin is elevated at 4.52. BNP elevated at 1480. RADIOLOGY: Chest x-ray shows stable appearance of the chest. ASSESSMENT: 1. Hypoxic respiratory failure on noninvasive ventilation. 2. COVID pneumonitis with underlying pneumonia. 3. Worsening left-sided pneumonia, healthcare acquired, patient having been in a long-term care facility. 4. Osteomyelitis of the right great toe with sepsis on vancomycin and cefepime. 5. Hypernatremia due to dehydration from poor oral intake. 6. Acute on chronic kidney failure, back to baseline levels and stable. 7. Non-STEMI secondary to #1. 8. History of congestive heart failure with no current echocardiogram available for review with the patient having an elevated BNP. 9. Immunodeficiency disease, on methotrexate. 10. Peripheral vascular disease. PLAN: I did talk to his family, mainly his brother, to explain that the patient's prognosis is poor and discussed possibility of going to hospice. They are taking this into consideration. He does remain a DNR. I did increase his Lovenox given the fact that his D-dimer had gone up and non-STEMI, 70 mg q.12h. Now that he is not taking any oral intake, certainly we will need to start him on some fluids. I think we will put him on some D5W as he is severely dehydrated at this point with his labs and his sodium is going up, but we will be very conservative given his COVID status, his fragility and current lung function. Again, we will need to keep in contact with the family and I think at this point warrants further discussion and encouragement to try to take the patient to care and comfort because I do not think he is going to do well the next 24 to 48 hours. Until then, we will continue to monitor and treat as needed. #[id number] [facility]TDD
[2020-08-31] MEDS: DEXTROSE 5% 1000ML 1,000 ML IVS PRN (15:05)
[2020-08-31] MEDS: VANCOMYCIN HCL INJ 1,000 MG in SODIUM CHLORIDE 0.9% 250ML 250 ML IVPB SCH ×3 (17:40)
[2020-08-31] MEDS: ENOXAPARIN SODIUM 80 MG/0.8 ML SYG SUBCU SCH (20:57)
[2020-09-01] MEDS: DEXTROSE 5% 1000ML 1,000 ML IVS PRN (04:36)
[2020-09-01] MEDS: PANTOPRAZOLE SODIUM IV 40 MG VIAL IV SCH (05:59)
[2020-09-01] MEDS: DEXAMETHASONE INJ 10 MG/ML VIAL IV SCH (07:27)
[2020-09-01] MEDS: ENOXAPARIN SODIUM 80 MG/0.8 ML SYG SUBCU SCH (07:27)
[2020-09-01] MEDS: SODIUM CHLORIDE 0.9% (FLUSH) 10 ML SYG IV SCH (07:28)
[2020-09-01] MEDS: INSULIN LISPRO 100 UNITS/ML PEN SUBCU SCH ×2 (08:31→11:36)
[2020-09-01] MEDS: ALBUTEROL INHALER 64 PUFF/8GM INH SCH (08:45)
[2020-09-01] MEDS: VANCOMYCIN HCL INJ 1,000 MG in SODIUM CHLORIDE 0.9% 250ML 250 ML IVPB SCH ×2 (11:10→13:31)
[2020-09-01 11:56] VITALS: BP 97/56; TEMP 98.5; O2SAT 97
--- NOTE | 2020-09-01 13:59 | DS ---
SUPERVISING PHYSICIAN: Darío Rivera MD ADMISSION DIAGNOSIS: 1. COVID pneumonitis with 2. Sepsis secondary to right great toe cellulitis. 3. Hyperkalemia. 4. Acute kidney injury. 5. Diabetes mellitus, type 2. 6. Left sided pneumonia, likely healthcare acquired. 7. Congestive heart failure. 8. Immunocompromised state secondary to methotrexate. 9. Peripheral vascular disease. DISCHARGE DIAGNOSIS: 1. Acute respiratory failure on noninvasive ventilation. 2. COVID pneumonitis. 3. Worsening left-sided pneumonia. 4. Osteomyelitis of the right great toe. 5. Hypernatremia. 6. Acute on chronic kidney failure. 7. Non-ST elevation myocardial infarction. 8. History of congestive heart failure. 9. Immunocompromised state secondary to methotrexate. 10. Peripheral vascular disease. HOSPITAL COURSE: This is an 85-year-old male patient who was admitted on 08/20/20 with sepsis to right great toe cellulitis/osteomyelitis as well as COVID pneumonitis. Throughout his stay here, he was treated with antibiotic therapy for the osteomyelitis, but also has a COVID pneumonitis, which progressively worsened to the point where he needed noninvasive ventilation. The patient did not exhibit any improvement over his stay here and actually worsened. His left sided pneumonia worsened as well. D-dimer continued to elevate as well as CRP elevations. His family had changed his code status to DNR. He had decreased level of consciousness and failed to improve on noninvasive ventilation. Therefore, today, he was changed to care and comfort and discharged from his inpatient status to inpatient status. Therefore, further care will be initiated by hospice once he is admitted with them. #[id number] [facility]
[2020-09-01] MEDS ORDERED: SCOPOLAMINE PATCH 1.5MG 1 EA TD ONE (15:40)
[2020-09-01] MEDS ORDERED: MORPHINE SULFATE INJ 10 MG/ML VIAL ONE (16:55)
== END 2020-09-01 13:44 | disposition hospice, inpatient (51) | DRG 871 ==
LOC: ER 10:45 → MS 17:20 → OBSVTOIN 17:20
PROVIDERS: ADMIT Nurse Practitioner Acute Care; ATTEND Nurse Practitioner
PROC: XW033E5 Introduction of Remdesivir Anti-infective into Peripheral Vein, Percutaneous Approach, New Technology Group 5 (ICD-10-PCS; 2020-08-20)
PROC: 02HV33Z Insertion of Infusion Device into Superior Vena Cava, Percutaneous Approach (ICD-10-PCS; principal; 2020-08-25)
PROC: 5A0935A Assistance with Respiratory Ventilation, Less than 24 Consecutive Hours, High Flow/Velocity Cannula (ICD-10-PCS; 2020-08-28)
DX: A41.89 Other specified sepsis (principal); U07.1 COVID-19; J12.89 Other viral pneumonia; N17.9 Acute kidney failure, unspecified; M86.8X7 Other osteomyelitis, ankle and foot; I21.4 Non-ST elevation (NSTEMI) myocardial infarction; E87.0 Hyperosmolality and hypernatremia; D84.821 Immunodeficiency due to drugs; J96.91 Respiratory failure, unspecified with hypoxia; E87.5 Hyperkalemia; E86.0 Dehydration; L03.031 Cellulitis of right toe; E11.51 Type 2 diabetes mellitus with diabetic peripheral angiopathy without gangrene; N18.9 Chronic kidney disease, unspecified; T45.1X5A Adverse effect of antineoplastic and immunosuppressive drugs, initial encounter; Y92.9 Unspecified place or not applicable; Z79.01 Long term (current) use of anticoagulants; Z79.84 Long term (current) use of oral hypoglycemic drugs; Z79.52 Long term (current) use of systemic steroids; Z79.891 Long term (current) use of opiate analgesic; Z79.899 Other long term (current) drug therapy; Y95 Nosocomial condition; Z66 Do not resuscitate

== ENCOUNTER 2020-09-01 14:05 | Inpatient (IN) | payer OTHER ==
[2020-09-01] MEDS ORDERED: MORPHINE SULFATE INJ 10 MG/ML VIAL IV PRN (14:25)
[2020-09-01] MEDS ORDERED: ONDANSETRON INJ 4 MG/2 ML VIAL IV PRN (14:26)
[2020-09-01] MEDS ORDERED: SCOPOLAMINE PATCH 1.5MG 1 EA TD SCH (15:00)
[2020-09-01] MEDS ORDERED: SODIUM CHLORIDE 0.9% (FLUSH) 10 ML SYG IV PRN (16:42)
[2020-09-01] MEDS ORDERED: IV SET AND CAP CHANGE INJ INJ SCH (17:00)
--- NOTE | 2020-09-01 17:50 | HP ---
SUPERVISING PHYSICIAN: Darío Rivera MD HISTORY OF PRESENT ILLNESS: This is an 85-year-old male patient who was admitted on 08/20/20 with sepsis to right great toe cellulitis/osteomyelitis as well as COVID pneumonitis. Throughout his stay here, he was treated with antibiotic therapy for the osteomyelitis, but also has a COVID pneumonitis, which progressively worsened to the point where he needed noninvasive ventilation. The patient did not exhibit any improvement over his stay here and actually worsened. His left sided pneumonia worsened as well. D-dimer continued to elevate as well as CRP elevations. His family had changed his code status to DNR. He had decreased level of consciousness and failed to improve on noninvasive ventilation. Therefore, today, he was changed to care and comfort and discharged from his inpatient status to inpatient status. Therefore, further care will be initiated by hospice once he is admitted with them. PAST MEDICAL HISTORY: 1. Diabetes mellitus, type 2. 2. Cellulitis to the right great toe. 3. Congestive heart failure. 4. Peripheral vascular disease. 5. immunodeficiency disease, on methotrexate. PAST SURGICAL HISTORY: Unknown. OUTPATIENT MEDICATIONS: Please see medication reconciliation list once verified in the computer. ALLERGIES: NO KNOWN DRUG ALLERGIES. SOCIAL HISTORY: The patient is from [place] and recently was admitted to [facility]. He has unknown status of ETOH, tobacco or illicit drug use. FAMILY HISTORY: Reviewed and noncontributory. REVIEW OF SYSTEMS: Unable to obtain due to the patient's mental status. PHYSICAL EXAMINATION: VITAL SIGNS: Blood pressure 106/62, heart rate 96, respiratory rate 20, temperature 97.3, oxygen saturation 97% on noninvasive ventilation. GENERAL: Mr. Womack is an 85-year-old male patient who is nonresponsive and ill in appearance. NEUROLOGIC: The patient is nonresponsive. LUNGS: Scattered rhonchi. CARDIOVASCULAR: Regular rate and rhythm. Normal S1, S2. GASTROINTESTINAL: Abdomen is soft. Positive bowel sounds. EXTREMITIES: No significant edema. IMPRESSION: 1. Acute respiratory failure on noninvasive ventilation. 2. COVID pneumonitis. 3. Worsening left-sided pneumonia. 4. Osteomyelitis of the right great toe. 5. Hypernatremia. 6. Acute on chronic kidney failure. 7. Non-ST elevation myocardial infarction. 8. History of congestive heart failure. 9. Immunocompromised state secondary to methotrexate. 10. Peripheral vascular disease. PLAN: Further care per hospice care at this time. #[id number] [facility]
[2020-09-01 18:08] VITALS: BP 66/40; TEMP 95.9; O2SAT 56
[2020-09-04] MEDS ORDERED: REMOVE OLD PATCH TOP SCH (15:00)
== END 2020-09-01 19:40 | disposition expired | DRG 951 ==
LOC: MS 14:05
PROVIDERS: ADMIT Nurse Practitioner; ATTEND Nurse Practitioner
DX: Z51.5 Encounter for palliative care (principal); U07.1 COVID-19; J12.89 Other viral pneumonia; J96.00 Acute respiratory failure, unspecified whether with hypoxia or hypercapnia; M86.8X7 Other osteomyelitis, ankle and foot; E87.0 Hyperosmolality and hypernatremia; N17.9 Acute kidney failure, unspecified; I21.4 Non-ST elevation (NSTEMI) myocardial infarction; E11.51 Type 2 diabetes mellitus with diabetic peripheral angiopathy without gangrene; I50.9 Heart failure, unspecified; E11.69 Type 2 diabetes mellitus with other specified complication; E11.22 Type 2 diabetes mellitus with diabetic chronic kidney disease; N18.9 Chronic kidney disease, unspecified; Z66 Do not resuscitate; Z79.899 Other long term (current) drug therapy